=== PATIENT | male | born 2000 | race African-American/Black ===

== ENCOUNTER 2024-11-08 22:52 | Emergency (ER) | payer MEDICAID ==
[~2024-11-08] VITALS: Ht 167.6 cm; Wt 73.0 kg
[2024-11-08 23:21] VITALS: O2SAT 97
[2024-11-08] MEDS ORDERED: METHYLPREDNISOLONE 40MG/ML INJ IV ONE (23:30)
[2024-11-08] MEDS ORDERED: PREDNISONE 20MG TABLET PO STA (23:31)
[2024-11-08 23:38] VITALS: BP 165/84; TEMP 37
[2024-11-08] MEDS ORDERED: METHYLPREDNISOLONE SOD SUCC 125MG/2ML (ACT-O-VIAL) IM NR (23:45)
[2024-11-09] MEDS ORDERED: DEXAMETHASONE 1MG TABLET PO ONE
[2024-11-09 00:04] VITALS: PULSE 99; RESP 20; O2SAT 100
[2024-11-09] MEDS: ALBUTEROL (0.083%) 2.5MG/3ML NEB HHN STA (00:04)
[2024-11-09] MEDS: IPRATROPIUM/ALBUTEROL 0.5-3(2.5)MG/3ML NEB HHN ONE (00:04)
[2024-11-09] MEDS: IPRATROPIUM BROMIDE (0.02%) 0.5MG/2.5ML NEB HHN STA (00:04)
[2024-11-09] MEDS: DEXAMETHASONE 4MG TABLET PO NR (00:25)
[2024-11-09] MEDS ORDERED: ALBU18HF2 IH (00:54)
== END 2024-11-09 01:25 | disposition home or self-care (01) ==
LOC: ER 22:52
DX: J45.901 Unspecified asthma with (acute) exacerbation (principal); Z76.0 Encounter for issue of repeat prescription; Z79.52 Long term (current) use of systemic steroids; Z79.899 Other long term (current) drug therapy
CPT/HCPCS: 99283; 94640; 98960; J8540; Z7610 ×4; 94070; 94664; J2919

== ENCOUNTER 2025-04-05 00:56 | Emergency (ER) | payer MEDICAID ==
[~2025-04-05] VITALS: Ht 170.2 cm; Wt 82.0 kg
[~2025-04-05 00:56] MED LIST: ALBU18HF2 IH
[2025-04-05 00:59] VITALS: O2SAT 98
[2025-04-05 01:00] VITALS: BP 160/91; PULSE 82; RESP 16; TEMP 37.1; O2SAT 98
== END 2025-04-05 01:39 | disposition left against medical advice (07) ==
LOC: ER 00:56
DX: S20.402A Unspecified superficial injuries of left back wall of thorax, initial encounter (principal); J45.909 Unspecified asthma, uncomplicated; Z79.899 Other long term (current) drug therapy; Z53.29 Procedure and treatment not carried out because of patient's decision for other reasons; W34.00XA Accidental discharge from unspecified firearms or gun, initial encounter; Y93.01 Activity, walking, marching and hiking; Y92.410 Unspecified street and highway as the place of occurrence of the external cause; Y99.8 Other external cause status
CPT/HCPCS: 71046; 99283